=== PATIENT | female | born 1985 | race Caucasian/White ===

== ENCOUNTER → 2017-09-08 11:23 | Outpatient (CLI) | payer BC, SELFPAY ==
[2017-09-12 11:34] LABS: HPV Reflexed? NOT INDICATED
== END ==
PROVIDERS: Visit Provider Obstetrics & Gynecology
DX: Z12.4 Encounter for screening for malignant neoplasm of cervix (principal)
CPT/HCPCS: 88175; G0145

== ENCOUNTER 2018-08-06 08:59 | Emergency (ER) | payer BC, SELFPAY ==
[2018-08-06 09:00] VITALS: BP 124/78; PULSE 104; RESP 17; TEMP 36.4; O2SAT 97
--- NOTE | 2018-08-06 09:20 | CT_ITS ---
STUDY: CT ABDOMEN AND PELVIS WITHOUT CONTRAST REASON FOR EXAM: Female, 32 years old. Lower back pain, difficulty urinating RADIATION DOSAGE (If Supplied By Facility): CTDIvol = ( 22.96 ) mGy, DLP = ( 1290.63 ) mGycm TECHNIQUE: Transaxial images were obtained from the dome of the diaphragm to the symphysis pubis without oral contrast, and without intravenous contrast. Sagittal and coronal images were reconstructed. Individualized dose optimization techniques were used for this CT. COMPARISON: None. FINDINGS: Body wall soft tissues: No acute process. Osseous structures: No acute process. There is no significant lumbar spondylosis. Inferior chest: No acute process. Hepatobiliary: Mild hepatomegaly, craniocaudal right liver 19.6 cm without significant features of hepatic steatosis and with no suspicious focal lesions. Normal gallbladder and biliary tree. Pancreas: No acute process. Spleen: Normal. Adrenal glands: Normal. Urogenital: Normal right kidney, collecting system and ureter. Nonobstructing calyceal calculus of the left kidney posterior mid polar calyx, 2 of them, each measuring about 4 mm. There is mild left hydronephrosis, mild hydroureter, slight induration in the fat surrounding the ureter. There is no retained left ureteral calculus. There is apparent mild plethora of the left kidney without significant perinephric stranding. Mild thickening of the wall the urinary bladder circumferentially without inflammatory induration the surrounding periserosal fat. Unremarkable uterus, ovaries and adnexa. Pelvic floor and sidewalls and retroperitoneum: No mass or adenopathy. Vasculature: No acute process. Stomach: No acute process. Small bowel and mesentery: No acute process. Large bowel: Normal appendix. Normal large bowel and rectum. Free fluid or free air: None. CT/Abdomen/Pelvis without Cont IMPRESSION: Retained nonobstructing calyceal calculi of the left kidney, none seen on the right. Mild left hydronephrosis and hydroureter with increased conspicuity of the ureteral wall and minimal induration in the periureteral fat without retained calculus along the course of the left ureter. These findings are associated with mild circumferential thickening of the urinary bladder wall. Differential considerations include recently completed calculus passage versus occult UTI/cystitis with ascending urinary tract infection. Electronically Signed: Alberto Murray MD at 10:21 EST Tel , Service support ,
--- NOTE | 2018-08-06 09:22 | ED.DCSUM_ITS ---
- ER Visit Summary Date of Service: 08/06/18 Chief Complaint: Left flank pain left History of Present Illness: The patient is a 32 F presenting with fairly sudden onset left flank pain this morning. It radiates anteriorly. It is sharp and stabbing. It is somewhat affected by movements but she does not recall any injury. She also had slight urinary hesitancy but denies hematuria or dysuria. Denies bowel or bladder dysfunction. Denies groin paresthesias. The pain does not radiate into her buttocks. She denies history of kidney stone but that is her concern at this point. Physical Examination: Vitals are within normal limits. She is not in distress. Neck is supple. Heart tones are regular and without murmur. Lungs are clear bilaterally. There is minimal left flank percussion tenderness but no midline bony spinal tenderness, erythema, or fluctuance. Normal strength and sensation is noted in both lower extremities. No clonus. Negative Babinski's. Abdomen is soft and nontender. Test Results: Urinalysis feels blood but no obvious markers of infection. CT flank feels left sided hydronephrosis and ureteral dilatation, likely consistent with a recently passed stone. Emergency Department Course and Treatment: She did not want pain medication. Her pain nearly completely resolved. Urine does not appear infected but I sent her for culture. She has ureteral dilatation and hydronephrosis on the left with no obvious ureteral stone. Most likely consistent with a recently passed stone since her pain has now resolved but obstruction due to mass-effect cannot be ruled out. I did send a culture for the urine and I feel that she can safely be discharged since she is pain-free. She was referred to urology for close follow-up and further evaluation Treatment Plan: Follow-up with urology Disposition: Home stable Impression: Initial encounter left flank pain likely secondary to ureteral stone, nonobstructing left kidney stone This note was generated with [employer] dictation software. It may contain incorrect words, spelling, and punctuation that were not noted in review of the chart prior to signing ED Disposition - Plan for ED Patient: Chief Complaint: Back Instructions: ED Stone Renal Passed Referrals: Herb Frausto MD [STAFF PHYSICIAN] -
[2018-08-06 09:57] LABS: Bacteria 0 SEEN /hpf (None Seen); Mucous, Urine 0 SEEN /hpf (<or=2+)
[2018-08-06 09:58] LABS: Color, Urine Yellow (Yellow); Glucose, Dipstick Normal (Normal); Ketone-Dipstick Negative (Negative); Leukocyte Esterase-Dipstick Negative /ul (Negative); Nitrite-Dipstick Negative (Negative); Occult Blood-Urine 250 /ul (Negative); Protein-Dipstick 15 mg/dl (Negative); Urine Bilirubin Dipstick Negative (Negative); Urine Clarity Sl. Cloudy (Clear); Urine Urobilinogen Normal (Normal)
[2018-08-06 10:00] LABS: Internal QC Validated? YES +Cl - CLEAR BKGD
[2018-08-06 10:01] LABS: Pregnancy, Urine Negative Negative
[2018-08-06 10:05] LABS: Red Blood Cells-Urine 0-5 SEEN /hpf (0-5); Squamous Epithelial Cells - UA 0-5 SEEN /hpf (5-10); White Blood Cells 0-5 SEEN /hpf (0-5)
[2018-08-06 10:31] VITALS: BP 120/70; PULSE 95; RESP 17; O2SAT 99
--- OUTSIDE RECORDS SUMMARY | 2018-10-09 11:03 | XMS RPT_ITS ---
:1985 Author Organization [facility] Care Team Providers Name Role Phone Cullen Hsu Attending Unavailable Alberto Cisneros NP-[facility] Unavailable Manuela Santos Attending Unavailable Primay Care Physicia, No Primary Care Unavailable PROBLEMS PROBLEMS DATE TYPE CONDITION / CODE ATTENDING STATUS SOURCE 09/08/2017 Unknown Z12.4 - Manuela Santos Active [place] Encounter for Community screening for Hospital malignant Repository neoplasm of cervix / Z12.4(ICD-10) PROCEDURES PROCEDURES No Procedure Records FoundRESULTS RESULTS EMERGENCY DEPARTMENT Observed: 08/06/2018 Status: F Source: [facility] [place] [place] SUMMARY 10:30 AM [facility] REPOSITORY [facility] Medical Records Department [address] [place] [address] Emergency Department Summary 08/06/18 0921 MR#: [id number] Acct: [id number] Name: SUNITA VILLATORO Rep #: [id number] : 1985 32 From: Nicolas Hsu MD PCP: REVA Sutton Status: REG ER - ER Visit Summary Date of Service: 08/06/18 Chief Complaint: Left flank pain left History of Present Illness: The patient is a 32 F presenting with fairly sudden onset left flank pain this morning. It radiates anteriorly. It is sharp and stabbing. It is somewhat affected by movements but she does not recall any injury. She also had slight urinary hesitancy but denies hematuria or dysuria. Denies bowel or bladder dysfunction. Denies groin paresthesias. The pain does not radiate into her buttocks. She denies history of kidney stone but that is her concern at this point. Physical Examination: Vitals are within normal limits. She is not in distress. Neck is supple. Heart tones are regular and without murmur. Lungs are clear bilaterally. There is minimal left flank percussion tenderness but no midline bony spinal tenderness, erythema, or fluctuance. Normal strength and sensation is noted in both lower extremities. No clonus. Negative Babinski's. Abdomen is soft and nontender. Test Results: Urinalysis feels blood but no obvious markers of infection. CT flank feels left sided hydronephrosis and ureteral dilatation, likely consistent with a recently passed stone. Emergency Department Course and Treatment: She did not want pain medication. Her pain nearly completely resolved. Urine does not appear infected but I sent her for culture. She has ureteral dilatation and hydronephrosis on the left with no obvious ureteral stone. Most likely consistent with a recently passed stone since her pain has now resolved but obstruction due to mass-effect cannot be ruled out. I did send a culture for the urine and I feel that she can safely be discharged since she is pain-free. She was referred to urology for close follow-up and further evaluation Treatment Plan: Follow-up with urology Disposition: Home stable Impression: Initial encounter left flank pain likely secondary to ureteral stone, nonobstructing left kidney stone This note was generated with [employer] dictation software. It may contain incorrect words, spelling, and punctuation that were not noted in review of the chart prior to signing ED Disposition - Plan for ED Patient: Chief Complaint: Back Instructions: ED Stone Renal Passed Referrals: Herb Frausto MD [STAFF PHYSICIAN] - What to do if you have Problems For any increased pain, shortness of breath, bleeding, nausea or vomiting, chest pain, or any unexpected problems, contact your Primary Care Provider. Call [facility] ([phone]) or report to the closest Emergency Room. Call 911 if necessary. 08/06/18 1030 <Electronically signed by Nicolas Hsu MD> Date Nicolas Hsu MD Cosigner Signature (If Indicated): Date CC: REVA Cisneros URINALYSIS, COMPLETE Collected: 08/06/2018 Status: F Source: [facility] [place] [place] 9:[address] [facility] REPOSITORY Order Comment: Order Date: 08/06/18 Has pt arrived? Y Order Date: 08/06/18 Has pt arrived? Y How was Urine Obtained? CLEAN CATCH TYPE CODE TESTS RESULT OUT OF RANGE REFERENCE UNITS LAB L400.3000 Yellow COLOR Normal Yellow LAB L400.3050 Clear Normal CLARITY Sl. Cloudy LAB L400.3200 Normal mg/dl Normal GLUCOSE, UR Normal LAB L400.3300 Negative mg/dL Normal BILIRUBIN URINE Negative LAB L400.3400 Negative mg/dl Normal KETONE UR Negative LAB L400.3465 1.002-1.030 Normal SP.GR. DIPSTX 1.010 LAB L400.3550 5.0 - 8.0 pH UR Normal 7.0 LAB L400.3600 Negative mg/dl High PROT 15 DIPSTX LAB L400.3700 Normal mg/dl Normal UROBILI Normal LAB L400.3750 Negative Normal NITRITE UR Negative LAB L400.3780 Negative /ul High OCCULT BLOOD-UR 250 LAB L400.3800 Negative /ul LEUK Normal ESTERASE Negative LAB L400.4050 0-5 /hpf WBC Normal 0-5 SEEN LAB L400.4100 0-5 /hpf Normal RBC-UA 0-5 SEEN LAB L400.4150 5-10 /hpf SQUAM Normal EPI 0-5 SEEN LAB L400.4300 None Seen /hpf 0 Normal BACTERIA SEEN LAB L400.4350 <or=2+ /hpf 0 Normal MUCUS, URINE SEEN Performed By: #### L400.0001, L400.7600 #### [facility] [address] [place], [address] ,URINE Collected: 08/06/2018 Status: F Source: [place] 9:[address] [facility] REPOSITORY Order Comment: Order Date: 08/06/18 Has pt arrived? Y Order Date: 08/06/18 Has pt arrived? Y How was Urine Obtained? CLEAN CATCH TYPE CODE TESTS RESULT OUT OF REFERENCE UNITS RANGE LAB L400.8000 Negative Normal HCGUQUAL Negative Result Comment: Very dilute urine specimens, as indicated by a low specific gravity, may not contain representative phlebotomy services levels of hCG. If is still suspected, a first morning urine specimen should be collected 48 hours later and tested. Performed By: #### L400.0001, L400.7600 #### [facility] [address] [place], [address] ABDOMEN/PELVIS WITHOUT Observed: 08/06/2018 Status: F Source: [place] CONT 9:[address] [facility] REPOSITORY [facility] Imaging Services [address] [place] [address] Abdomen/Pelvis without Cont MR#: [id number] Acct: [id number] Name: SUNITA VILLATORO Rep #: [id number] : 1985 F 32 From: Alberto Murray MD PCP: REVA Sutton Status: REG ER Study: Abdomen/Pelvis without Cont Date of Exam: 08/06/18 Exam# [id number] Ordering Dr: Nicolas Hsu MD STUDY: CT ABDOMEN AND PELVIS WITHOUT CONTRAST REASON FOR EXAM: Female, 32 years old. Lower back pain, difficulty urinating RADIATION DOSAGE (If Supplied By Facility): CTDIvol = ( 22.96 ) mGy, DLP = ( 1290.63 ) mGycm TECHNIQUE: Transaxial images were obtained from the dome of the diaphragm to the symphysis pubis without oral contrast, and without intravenous contrast. Sagittal and coronal images were reconstructed. Individualized dose optimization techniques were used for this CT. COMPARISON: None. FINDINGS: Body wall soft tissues: No acute process. Osseous structures: No acute process. There is no significant lumbar spondylosis. Inferior chest: No acute process. Hepatobiliary: Mild hepatomegaly, craniocaudal right liver 19.6 cm without significant features of hepatic steatosis and with no suspicious focal lesions. Normal gallbladder and biliary tree. Pancreas: No acute process. Spleen: Normal. Adrenal glands: Normal. Urogenital: Normal right kidney, collecting system and ureter. Nonobstructing calyceal calculus of the left kidney posterior mid polar calyx, 2 of them, each measuring about 4 mm. There is mild left hydronephrosis, mild hydroureter, slight induration in the fat surrounding the ureter. There is no retained left ureteral calculus. There is apparent mild plethora of the left kidney without significant perinephric stranding. Mild thickening of the wall the urinary bladder circumferentially without inflammatory induration the surrounding periserosal fat. Unremarkable uterus, ovaries and adnexa. Pelvic floor and sidewalls and retroperitoneum: No mass or adenopathy. Vasculature: No acute process. Stomach: No acute process. Small bowel and mesentery: No acute process. Large bowel: Normal appendix. Normal large bowel and rectum. Free fluid or free air: None. CT/Abdomen/Pelvis without Cont IMPRESSION: Retained nonobstructing calyceal calculi of the left kidney, none seen on the right. Mild left hydronephrosis and hydroureter with increased conspicuity of the ureteral wall and minimal induration in the periureteral fat without retained calculus along the course of the left ureter. These findings are associated with mild circumferential thickening of the urinary bladder wall. Differential considerations include recently completed calculus passage versus occult UTI/cystitis with ascending urinary tract infection. Electronically Signed: Alberto Murray MD at 10:21 EST Tel , Service support , CC: REVA Cisneros; Cullen Hsu MD Life Underwriter: Signed PAP I-G W/RFX HRHPV Collected: 09/08/2017 Status: F Source: [place] 11:[address] [facility] REPOSITORY Order Comment: CYTOLOGY INFORMATION: - CLINICAL INFORMATION: - DATE LMP/MENOPAUSE: OCP LMP - COLLECTION VIAL: Thin Prep Vial - UMBRELLA CUTTER SOURCE: CERVICAL/ENDOCERVICAL - COLLECTION TECHNIQUE: BRUSH/SPATULA Specimen Comment: [id number] Specimen Comment: No. of containers..01 ThinPrep Vial TYPE CODE TESTS RESULT OUT OF RANGE REFERENCE UNITS LAB L7400.0800 . Normal DIAGN Comment Result Comment: NEGATIVE FOR INTRAEPITHELIAL LESION AND MALIGNANCY. LAB L7400.0900 . Normal ADEQ Comment Result Comment: Satisfactory for evaluation. Endocervical and/or squamous metaplastic cells (endocervical component) are present. LAB L7400.1400 . Normal PERFORM Comment Result Comment: Becky German, Canned Food Reconditioning Inspector (ASCP) LAB L7400.2575 . Normal TEST METHOD Comment Result Comment: This liquid based ThinPrep(R) pap test was screened with the use of an image guided system. LAB L7400.2600 . Normal . COMM LAB L7400.2700 . Normal PAPSMR Comment Result Comment: The Pap smear is a screening test designed to aid in the detection of premalignant and malignant conditions of the uterine cervix. It is not a diagnostic procedure and should not be used as the sole means of detecting cervical cancer. Both false-positive and false-negative reports do occur. LAB L7400.2800 . Normal HPV RFLX Comment Result Comment: The HPV DNA reflex criteria were not met with this specimen result therefore, no HPV testing was performed. Performed at: [address] [id number] Tool [employer] Die Maker: Yu Pereyra MD, Phone: [phone] Performed By: #### L7400.0350 #### [facility] (refer to report for specific site) refer to report for address and phone number ALLERGIES ALLERGIES DATE TYPE / CODE NAME / CODE REACTION SEVERITY SOURCE 08/06/2018 Drug banana/F0060 Other Unknown [place] Allergy/4160 [address]([place] [id number](SNOMED ) Repository CT) 08/06/2018 Drug kiwi/[id number] Other Unknown [facility] Allergy/4160 368([place] [address](SNOMED Repository CT) ENCOUNTERS ENCOUNTERS ADMIT/DISCHARGE ACCOUNT ADMITTING ENCOUNTER LOCATION SOURCE NUMBER CLASS 08/06/2018/ [id number] Emergency [place] 9 0 [facility] ing:ED Repository 09/08/2017 [id number] Ambulatory [place] 7 [facility] ing:LABSPEC Repository PAYERS PAYERS ENCOUNTER GUARANTOR PAYER SUBSCRIBER SOURCE 08/06/2018 [facility] [place] [id number] S Insurance:ANTHEMPolic NOFSINGERDOB: [facility] APPLE JAMUL y Number: [id number] [place] [address]Mnt: Date:3492-13-30[address]DYMS[address] [place] () [address]YG: 08/06/2018 Secondary NOT GIVENUNK [place] Insurance:SELF PAY [facility] Number: Effective Repository Date:2018-08-06 09/08/2017 [facility] [place] [id number] Insurance:ANTHEMPolic NOFSINGERDOB: [facility] APPLECRE y [place]: [id number] [id number] Repository [address]Bgj: 330) Date:0904-68-16[phone] () [place] [address]YQ: 09/08/2017 Secondary NOT GIVENUNK [place] Insurance:SELF PAY [facility] Number: Effective Repository Date:2017-09-08
== END 2018-08-06 10:38 | disposition home or self-care (01) ==
PROVIDERS: Emergency Provider Emergency Medicine; Family Provider Nurse Practitioner Family; PCP Nurse Practitioner Family
DX: R10.9 Unspecified abdominal pain (principal); N13.2 Hydronephrosis with renal and ureteral calculous obstruction; R39.11 Hesitancy of micturition; Z79.3 Long term (current) use of hormonal contraceptives
CPT/HCPCS: 74176; 81001; 81025; 99282

== ENCOUNTER → 2018-09-19 14:54 | Outpatient (CLI) | payer BC, SELFPAY ==
[2018-09-22 12:15] LABS: HPV Reflexed? NOT INDICATED
== END ==
PROVIDERS: Visit Provider Obstetrics & Gynecology
DX: Z12.4 Encounter for screening for malignant neoplasm of cervix (principal)
CPT/HCPCS: 88175; G0145

== ENCOUNTER → 2020-02-07 | Outpatient (CLI) | payer BC, SELFPAY ==
[2020-02-07 19:47] LABS: Chlamydia Trachomatis by PCR Negative (Negative); Neisserai gonorrhoeae by PCR Negative (Negative); Probe Check PASS; Sample Adequacy Control PASS; Specimen Processing Control PASS; Trichomonas Vag DNA by PCR Negative (Negative)
== END | disposition home or self-care (01) ==
LOC: LABSPEC 16:08
PROVIDERS: Visit Provider Obstetrics & Gynecology
DX: Z11.3 Encounter for screening for infections with a predominantly sexual mode of transmission (principal)
CPT/HCPCS: 87491; 87591; 87661

== ENCOUNTER 2021-07-30 10:08 | Outpatient (CLI) | payer BC, SELFPAY ==
[2021-07-30 11:46] LABS: Vitamin B12 437 pg/mL (211-911); Vitamin D,25 Hydroxy 24.5 ng/mL
[2021-07-30 12:28] LABS: Estradiol 60.1 pg/mL; Ferritin 71 ng/mL (8-252); Follicle Stimulating Hormone 8.3 mIU/mL; Luteinizing Hormone 4.5 mIU/mL; Prolactin 4.8 ng/mL
[2021-08-06 19:14] LABS: 17-Hydroxyprogesterone 20 ng/dL (.)
== END 2021-07-30 23:59 | disposition short-term general hospital (02) ==
LOC: WOBLAB 10:09
PROVIDERS: Visit Provider Student in an Organized Health Care Education/Training Program
DX: N91.2 Amenorrhea, unspecified (principal)
CPT/HCPCS: 36415; 82306; 82607; 82670; 82728; 82746; 83001; 83002; 83498; 84146

== ENCOUNTER → 2022-08-17 | Outpatient (CLI) | payer OTHER, SELFPAY ==
[2022-08-21 14:48] LABS: HPV APTIMA, High Risk Negative (Negative)
== END | disposition home or self-care (01) ==
LOC: LABSPEC 10:17
PROVIDERS: Visit Provider Student in an Organized Health Care Education/Training Program
DX: Z12.4 Encounter for screening for malignant neoplasm of cervix (principal)
CPT/HCPCS: 87624; 88175; G0145